=== PATIENT | female | born 1965 | race Caucasian/White ===

== ENCOUNTER 2019-03-28 06:04 | Outpatient (CLI) | payer OTHER ==
[~2019-03-28] VITALS: Ht 156.2 cm; Wt 60.1 kg
[2019-03-28 07:00] VITALS: BP 109/74
== END 2019-03-28 23:59 | disposition home or self-care (01) ==
LOC: INFUSION 06:04
PROVIDERS: ATTEND Specialist
DX: D50.9 Iron deficiency anemia, unspecified (principal)
CPT/HCPCS: 36415; 36591; 85014; 85018; 96365; 96366; 96367; J1750; J7050

== ENCOUNTER 2019-03-31 10:12 | Observation (INO) | payer OTHER ==
[~2019-03-31] VITALS: Ht 154.9 cm; Wt 61.9 kg
[2019-04-01 12:34] VITALS: BP 93/61
== END 2019-04-01 12:00 | disposition home or self-care (01) ==
LOC: OUT 10:12 → ORIP 18:58 → 4NOR 19:30
PROVIDERS: ADMIT Specialist; ATTEND Specialist
DX: D25.9 Leiomyoma of uterus, unspecified (principal); E61.1 Iron deficiency
CPT/HCPCS: 36415; 58573; 81025; 85025; 85027; 88307; 96374; 96376; G0378; J0330; J1100; J1170; J1885; J2250; J2405; J2704; J3010; J3490; J7040; J7120; Q0162; S2900